=== PATIENT | female | born 1985 | race Caucasian/White ===

== ENCOUNTER 2017-11-27 14:09 | Inpatient (IN) | payer OTHER ==
[2017-11-27] MEDS ORDERED: Nalbuphine 10 MG/1 ML Vial IVPUSH PRN (14:15)
[2017-11-27] MEDS ORDERED: Tranexamic Acid 1,000 MG in Sodium Chloride 0.9% 100 ML IV PRN (14:15)
[2017-11-27] MEDS ORDERED: Carboprost Tromethamine 250 MCG/1 ML Amp IM PRN (14:15)
[2017-11-27] MEDS ORDERED: Terbutaline 1 MG/ML SDV SUBCUT PRN (14:15)
[2017-11-27] MEDS ORDERED: Methylergonovine 0.2 MG/1 ML Amp IM PRN (14:15)
[2017-11-27] MEDS ORDERED: Sodium Chloride 0.9% 10 ML Syringe FLUSH PRN (14:15)
[2017-11-27] MEDS ORDERED: Butorphanol 1 MG/ML SDV IVPUSH PRN (14:15)
[2017-11-27] MEDS ORDERED: Misoprostol 200 MCG Tab PO PRN (14:15)
[2017-11-27] MEDS ORDERED: Sodium Chloride 0.9% 2.5 ML Syringe FLUSH PRN (14:15)
[2017-11-27] MEDS ORDERED: Lidocaine 1% 50 ML MDV INJECT PRN (14:15)
[2017-11-27] MEDS ORDERED: Water For Irrigation,Sterile 1,000 ML Container IRR PRN (14:15)
[2017-11-27] MEDS ORDERED: Oxytocin/0.9 % Sodium Chloride 30 UNIT/500 ML BAG IV SCH ×2 (14:15)
[2017-11-27] MEDS: Lactated Ringers 1,000 ML IV SCH ×2 (15:26→23:06)
--- NOTE | 2017-11-27 22:28 | PCM.PREANE ---
Preanesthetic Assessment - Anesthesia/Transfusion/Family Hx Anesthesia History: Prior Anesthesia Without Reaction Family History of Anesthesia Reaction: No Transfusion History: No Prior Transfusion(s) - Review of Systems General: No Symptoms Pulmonary: No Symptoms Cardiovascular: No Symptoms Gastrointestinal: No Symptoms Neurological: No Symptoms Other: Reports: None - Physical Assessment Height: 5 ft 1 in Weight: 81.193 kg ASA Class: 2 Mental Status: Alert & Oriented x3 Airway Class: Mallampati = 2 Dentition: Reports: Normal Dentition Thyro-Mental Finger Breadths: 3 Mouth Opening Finger Breadths: 3 ROM/Head Extension: Full Lungs: Clear to Auscultation, Normal Respiratory Effort Cardiovascular: Regular Rate, Regular Rhythm - Lab Values: Laboratory Last Values WBC 8.11 K/uL (4.0-11.0) 11/27/17 14:52 RBC 3.87 M/uL (4.30-5.90) L 11/27/17 14:52 Hgb 12.3 g/dL (12.0-16.0) 11/27/17 14:52 Hct 36.6 % (36.0-46.0) 11/27/17 14:52 MCV 94.6 fL (80.0-98.0) 11/27/17 14:52 MCH 31.8 pg (27.0-32.0) 11/27/17 14:52 MCHC 33.6 g/dL (31.0-37.0) 11/27/17 14:52 RDW Std Deviation 50.9 fl (28.0-62.0) 11/27/17 14:52 RDW Coeff of Kyara 15 % (11.0-15.0) 11/27/17 14:52 Plt Count 248 K/uL (150-400) 11/27/17 14:52 MPV 9.50 fL (7.40-12.00) 11/27/17 14:52 Nucleated RBC % 0.0 /100WBC 11/27/17 14:52 Nucleated RBCs # 0 K/uL 11/27/17 14:52 POC Glucose 101 mg/dL (60-110) 11/27/17 19:18 Blood Type O POSITIVE 11/27/17 14:52 Antibody Screen NEGATIVE 11/27/17 14:52 - Allergies Allergies/Adverse Reactions: Allergies Allergy/AdvReac Type Severity Reaction Status Date / Time No Known Allergies Allergy Verified 10/12/17 21:24 - Acknowledgements Anesthesia Type Planned: Epidural Pt an Appropriate Candidate for the Planned Anesthesia: Yes Alternatives and Risks of Anesthesia Discussed w Pt/Guardian: Yes Pt/Guardian Understands and Agrees with Anesthesia Plan: Yes PreAnesthesia Questionnaire HEENT History: Reports: Impaired Vision Cardiovascular History: Reports: None Respiratory History: Reports: None Gastrointestinal History: Reports: GERD Genitourinary History: Reports: None 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: , Spontaneous : 4 Para: 3 LMP (Approximate): Musculoskeletal History: Reports: None Neurological History: Reports: None Psychiatric History: Reports: None Endocrine/Metabolic History: Reports: Diabetes, Gestational Hematologic History: Reports: None Immunologic History: Reports: None Oncologic (Cancer) History: Reports: None Dermatologic History: Reports: None - Infectious Disease History Infectious Disease History: Reports: Chicken Pox - Past Surgical History HEENT Surgical History: Reports: None Female Surgical History: Reports: None - SUBSTANCE USE Smoking Status *Q: Never Smoker Second Hand Smoke Exposure: Yes Recreational Drug Use History: No - HOME MEDS Home Medications: Home Meds Vit #76/Iron,Carb/Fa [Pnv 29-1 Tablet] 1 caplet DAILY 10/12/17 [History ] - CURRENT (IN HOUSE) MEDS Current Meds: Current Medications Butorphanol Tartrate (Stadol) 1 mg IVPUSH Q1H PRN PRN Reason: Pain Carboprost Tromethamine (Hemabate Ds) 250 mcg IM ASDIRECTED PRN PRN Reason: Post Hemorrhage Lactated Ringer's (Ringers, Lactated) 1,000 mls @ 150 mls/hr IV ASDIRECTED HELEN Last Admin: 11/27/17 15:26 Dose: 150 mls/hr Oxytocin/Sodium Chloride (Oxytocin 30 Unit/500 Ml-Ns) 30 unit in 500 mls @ 999 mls/hr IV TITRATE HELEN Oxytocin/Sodium Chloride (Oxytocin 30 Unit/500 Ml-Ns) 30 unit in 500 mls @ 2 mls/hr IV TITRATE HELEN; Protocol Last Titration: 11/27/17 18:20 Dose: 10 munits/min, 10 mls/hr Tranexamic Acid 1,000 mg/ (Sodium Chloride) 110 mls @ 660 mls/hr IV ONETIME PRN PRN Reason: Bleeding Insulin Human Regular 100 unit (/ Sodium Chloride) 100 mls @ 0.5 mls/hr IV TITRATE HELEN; Protocol Lidocaine HCl (Xylocaine 1%) 50 ml INJECT .ONCE PRN PRN Reason: Laceration repair Methylergonovine Maleate (Methergine) 0.2 mg IM ASDIRECTED PRN PRN Reason: Post Hemorrhage Misoprostol (Cytotec) 200 mcg PO .ONCE PRN PRN Reason: Post Hemorrhage Nalbuphine HCl (Nubain) 10 mg IVPUSH Q1H PRN PRN Reason: Pain (severe 7-10) Sodium Chloride (Saline Flush) 10 ml FLUSH ASDIRECTED PRN PRN Reason: Keep Vein Open Sodium Chloride (Saline Flush) 2.5 ml FLUSH ASDIRECTED PRN PRN Reason: Keep Vein Open Sterile Water (Sterile Water For Irrigation) 1,000 ml IRR ASDIRECTED PRN PRN Reason: delivery Terbutaline Sulfate (Brethine) 0.25 mg SUBCUT ASDIRECTED PRN PRN Reason: Tacysystole
[2017-11-28] MEDS ORDERED: oxyCODONE 5 MG Tab PO PRN (05:28)
[2017-11-28] MEDS ORDERED: Ibuprofen 800 MG Tab PO PRN (05:28)
[2017-11-28] MEDS ORDERED: Witch Hazel Medicated Pads 40/Jar TOP PRN (05:28)
[2017-11-28] MEDS ORDERED: Bisacodyl 10 MG Supp RECTAL PRN (05:28)
[2017-11-28] MEDS ORDERED: Acetaminophen 500 MG Tab PO PRN ×2 (05:28)
[2017-11-28] MEDS ORDERED: Ibuprofen 400 MG Tab PO PRN (05:28)
[2017-11-28] MEDS ORDERED: Docusate Sodium 100 MG Cap PO PRN (05:28)
[2017-11-28] MEDS ORDERED: Benzocaine/Menthol 20%-0.5% Spray 78 GM Cannister TOP PRN (05:28)
[2017-11-28] MEDS ORDERED: Lanolin 100% Cream 7 GM Tube TOP PRN (05:28)
--- NOTE | 2017-11-28 05:38 | PCM.DEL ---
L & D Note - General Info Date of Service: 11/28/17 - Delivery Note Labor: Augmented by Oxytocin Cervical Ripening Method: Misoprostil Delivery Outcome: Livebirth Infant Delivery Method: Spontaneous Vaginal Delivery-Single Presentation: Left Occiput Anterior (DILSHAD) Nuchal Cord: None Prep: Other Anesthesia Type: Epidural Amniotic Fluid Description: Clear Episiotomy Type: None Laceration: None Placenta: Intact, Spontaneous Cord: 3 Vessels Estimated Blood Loss: 150 Resuscitation Needed: No Score 1 min: 8 Score 5 min: 9 Second Stage Interventions: Reports: Encouragement Given, Pushing, Stirrups/Leg Supports Induction Criteria - Avendaño Score Avendaño Score Dilation: 1-2 cm Avendaño Score Effacement: 40-50% Avendaño Score 's Station: -3 Avendaño Score Consistency: Medium Avendaño Score Cervix Position: Posterior Avendaño Score Total: 3 Avendaño Score Presenting Part: Reports: Cephalic - Induction Gestational Age >/= 39 wks: No Medical Indication: Gestational diabetes, insulin controlled Estimated Pelvis: Reports: Adequate Reassuring Monitoring Strip: Yes Absence of Tachy Systole: Yes - General Info Date of Service: 11/28/17 - Patient Data Weight - Most Recent: 179 lb Lab Results Last 24 Hours: Laboratory Results - last 24 hr 11/27/17 11/27/17 11/27/17 Range/Units 14:52 14:52 15:29 WBC 8.11 (4.0-11.0) K/uL RBC 3.87 L (4.30-5.90) M/uL Hgb 12.3 (12.0-16.0) g/dL Hct 36.6 (36.0-46.0) % MCV 94.6 (80.0-98.0) fL MCH 31.8 (27.0-32.0) pg MCHC 33.6 (31.0-37.0) g/dL RDW Std Deviation 50.9 (28.0-62.0) fl RDW Coeff of Kyara 15 (11.0-15.0) % Plt Count 248 (150-400) K/uL MPV 9.50 (7.40-12.00) fL Nucleated RBC % 0.0 /100WBC Nucleated RBCs # 0 K/uL POC Glucose 133 H (60-110) mg/dL Blood Type O POSITIVE Antibody Screen NEGATIVE 11/27/17 11/27/17 11/27/17 Range/Units 17:24 19:18 21:51 WBC (4.0-11.0) K/uL RBC (4.30-5.90) M/uL Hgb (12.0-16.0) g/dL Hct (36.0-46.0) % MCV (80.0-98.0) fL MCH (27.0-32.0) pg MCHC (31.0-37.0) g/dL RDW Std Deviation (28.0-62.0) fl RDW Coeff of Kyara (11.0-15.0) % Plt Count (150-400) K/uL MPV (7.40-12.00) fL Nucleated RBC % /100WBC Nucleated RBCs # K/uL POC Glucose 121 H 101 89 (60-110) mg/dL Blood Type Antibody Screen 11/27/17 11/28/17 11/28/17 Range/Units 23:19 01:41 03:47 WBC (4.0-11.0) K/uL RBC (4.30-5.90) M/uL Hgb (12.0-16.0) g/dL Hct (36.0-46.0) % MCV (80.0-98.0) fL MCH (27.0-32.0) pg MCHC (31.0-37.0) g/dL RDW Std Deviation (28.0-62.0) fl RDW Coeff of Kyara (11.0-15.0) % Plt Count (150-400) K/uL MPV (7.40-12.00) fL Nucleated RBC % /100WBC Nucleated RBCs # K/uL POC Glucose 119 H 100 95 (60-110) mg/dL Blood Type Antibody Screen Med Orders - Current: Current Medications Acetaminophen (Tylenol Extra Strength) 500 mg PO Q4H PRN PRN Reason: Pain Acetaminophen (Tylenol Extra Strength) 1,000 mg PO Q4H PRN PRN Reason: Pain Benzocaine/Menthol (Dermoplast Pain Relief 20%-0.5% [place]) 78 gm TOP ASDIRECTED PRN PRN Reason: Perineal Comfort Measure Bisacodyl (Dulcolax) 10 mg RECTAL .ONCE PRN PRN Reason: Constipation Docusate Sodium (Colace) 100 mg PO BID PRN PRN Reason: Constipation Emollient Ointment (Lansinoh Hpa) 0 gm TOP ASDIRECTED PRN PRN Reason: Sore Nipples Ibuprofen (Motrin) 400 mg PO Q4H PRN PRN Reason: Pain Ibuprofen (Motrin) 800 mg PO Q6H PRN PRN Reason: Pain Oxycodone HCl (Oxycodone) 5 mg PO Q2H PRN PRN Reason: Pain Witch Andra (Tucks) 1 pad TOP ASDIRECTED PRN PRN Reason: comfort care Discontinued Medications Butorphanol Tartrate (Stadol) 1 mg IVPUSH Q1H PRN PRN Reason: Pain Carboprost Tromethamine (Hemabate Ds) 250 mcg IM ASDIRECTED PRN PRN Reason: Post Hemorrhage Lactated Ringer's (Ringers, Lactated) 1,000 mls @ 150 mls/hr IV ASDIRECTED HELEN Last Admin: 11/27/17 23:06 Dose: 999 mls/hr Oxytocin/Sodium Chloride (Oxytocin 30 Unit/500 Ml-Ns) 30 unit in 500 mls @ 999 mls/hr IV TITRATE HELEN Oxytocin/Sodium Chloride (Oxytocin 30 Unit/500 Ml-Ns) 30 unit in 500 mls @ 2 mls/hr IV TITRATE HELEN; Protocol Last Titration: 11/27/17 18:20 Dose: 10 munits/min, 10 mls/hr Tranexamic Acid 1,000 mg/ (Sodium Chloride) 110 mls @ 660 mls/hr IV ONETIME PRN PRN Reason: Bleeding Insulin Human Regular 100 unit (/ Sodium Chloride) 100 mls @ 0.5 mls/hr IV TITRATE HELEN; Protocol Fentanyl/Bupivacaine HCl (Hjvsujew-Jloto-Oh 2 Mcg/Ml-0.125%) Confirm Administered Dose 100 mls @ as directed EP .[facility] ONE Stop: 11/27/17 22:58 Lidocaine HCl (Xylocaine 1%) 50 ml INJECT .ONCE PRN PRN Reason: Laceration repair Methylergonovine Maleate (Methergine) 0.2 mg IM ASDIRECTED PRN PRN Reason: Post Hemorrhage Misoprostol (Cytotec) 200 mcg PO .ONCE PRN PRN Reason: Post Hemorrhage Nalbuphine HCl (Nubain) 10 mg IVPUSH Q1H PRN PRN Reason: Pain (severe 7-10) Sodium Chloride (Saline Flush) 10 ml FLUSH ASDIRECTED PRN PRN Reason: Keep Vein Open Sodium Chloride (Saline Flush) 2.5 ml FLUSH ASDIRECTED PRN PRN Reason: Keep Vein Open Sterile Water (Sterile Water For Irrigation) 1,000 ml IRR ASDIRECTED PRN PRN Reason: delivery Terbutaline Sulfate (Brethine) 0.25 mg SUBCUT ASDIRECTED PRN PRN Reason: Tacysystole - Problem List & Annotations (1) Vaginal delivery SNOMED Code(s): 776209093 Code(s): O80 - ENCOUNTER FOR FULL-TERM UNCOMPLICATED DELIVERY Status: Acute Current Visit: Yes (2) Gestational diabetes mellitus (GDM) requiring insulin SNOMED Code(s): 43787362, 895805059 Code(s): O24.414 - GESTATIONAL DIABETES IN , INSULIN CONTROLLED Status: Acute Current Visit: Yes - Problem List Review Problem List Initiated/Reviewed/Updated: Yes - My Orders Last 24 Hours: My Active Orders 11/28/17 05:14 BLOOD GAS ARTERIAL UMBILICAL [BG] Routine BLOOD GAS VENOUS UMBILICAL [BG] Routine 11/28/17 05:28 Patient Status [ADT] Routine May Shower [RC] ASDIRECTED Up ad Violeta [RC] ASDIRECTED Vital Signs [RC] PER UNIT ROUTINE Acetaminophen [Tylenol Extra Strength] 1,000 mg PO Q4H PRN Acetaminophen [Tylenol Extra Strength] 500 mg PO Q4H PRN Benzocaine/Menthol [Dermoplast Pain Relief 20%-0.5% [place]] 78 gm TOP ASDIRECTED PRN Bisacodyl [Dulcolax] 10 mg RECTAL .ONCE PRN Docusate Sodium [Colace] 100 mg PO BID PRN Ibuprofen [Motrin] 400 mg PO Q4H PRN Ibuprofen [Motrin] 800 mg PO Q6H PRN Lanolin [Lansinoh HPA] See Dose Instructions TOP ASDIRECTED PRN Witch Andra [Tucks] 1 pad TOP ASDIRECTED PRN oxyCODONE 5 mg PO Q2H PRN Assess Lochia [WOMSER] Per Unit Routine Assess Uterine Involution [WOMSER] Per Unit Routine Peripheral IV Discontinue [OM.PC] Routine Resuscitation Status Routine 11/28/17 05:29 Perineal Care [OM.PC] Per Unit Routine 11/28/17 Breakfast Regular Diet [DIET] 11/29/17 05:11 HEMOGLOBIN/HEMATOCRIT,HH [HEME] Timed
--- NOTE | 2017-11-28 07:18 | PCM48HPAN ---
Post Anesthesia Note - EVALUATION WITHIN 48HRS OF ANESTHETIC Vital Signs in Normal Range: Yes Patient Participated in Evaluation: Yes Respiratory Function Stable: Yes Airway Patent: Yes Cardiovascular Function Stable: Yes Hydration Status Stable: Yes Pain Control Satisfactory: Yes Nausea and Vomiting Control Satisfactory: Yes Mental Status Recovered: Yes
--- NOTE | 2017-11-28 08:18 | PCM.PNPP ---
- General Info Date of Service: 11/28/17 Functional Status: Reports: Pain Controlled, Tolerating Diet, Ambulating, Urinating - Review of Systems General: Reports: No Symptoms HEENT: Reports: No Symptoms Pulmonary: Reports: No Symptoms Cardiovascular: Reports: No Symptoms Gastrointestinal: Reports: No Symptoms Genitourinary: Reports: No Symptoms Musculoskeletal: Reports: No Symptoms Skin: Reports: No Symptoms Neurological: Reports: No Symptoms Psychiatric: Reports: No Symptoms - General Info Date of Service: 11/28/17 - Patient Data Weight - Most Recent: 81.193 kg Lab Results - Last 24 Hours: Laboratory Results - last 24 hr 11/27/17 11/27/17 11/27/17 Range/Units 14:52 14:52 15:29 WBC 8.11 (4.0-11.0) K/uL RBC 3.87 L (4.30-5.90) M/uL Hgb 12.3 (12.0-16.0) g/dL Hct 36.6 (36.0-46.0) % MCV 94.6 (80.0-98.0) fL MCH 31.8 (27.0-32.0) pg MCHC 33.6 (31.0-37.0) g/dL RDW Std Deviation 50.9 (28.0-62.0) fl RDW Coeff of Kyara 15 (11.0-15.0) % Plt Count 248 (150-400) K/uL MPV 9.50 (7.40-12.00) fL Nucleated RBC % 0.0 /100WBC Nucleated RBCs # 0 K/uL Cord ABG pH (7.18-7.38) Cord ABG Base Excess (-10--2) Cord VBG pH (7.25-7.45) Cord VBG Base Excess (-10--2) POC Glucose 133 H (60-110) mg/dL Blood Type O POSITIVE Antibody Screen NEGATIVE 11/27/17 11/27/17 11/27/17 Range/Units 17:24 19:18 21:51 WBC (4.0-11.0) K/uL RBC (4.30-5.90) M/uL Hgb (12.0-16.0) g/dL Hct (36.0-46.0) % MCV (80.0-98.0) fL MCH (27.0-32.0) pg MCHC (31.0-37.0) g/dL RDW Std Deviation (28.0-62.0) fl RDW Coeff of Kyara (11.0-15.0) % Plt Count (150-400) K/uL MPV (7.40-12.00) fL Nucleated RBC % /100WBC Nucleated RBCs # K/uL Cord ABG pH (7.18-7.38) Cord ABG Base Excess (-10--2) Cord VBG pH (7.25-7.45) Cord VBG Base Excess (-10--2) POC Glucose 121 H 101 89 (60-110) mg/dL Blood Type Antibody Screen 11/27/17 11/28/17 11/28/17 Range/Units 23:19 01:41 03:47 WBC (4.0-11.0) K/uL RBC (4.30-5.90) M/uL Hgb (12.0-16.0) g/dL Hct (36.0-46.0) % MCV (80.0-98.0) fL MCH (27.0-32.0) pg MCHC (31.0-37.0) g/dL RDW Std Deviation (28.0-62.0) fl RDW Coeff of Kyara (11.0-15.0) % Plt Count (150-400) K/uL MPV (7.40-12.00) fL Nucleated RBC % /100WBC Nucleated RBCs # K/uL Cord ABG pH (7.18-7.38) Cord ABG Base Excess (-10--2) Cord VBG pH (7.25-7.45) Cord VBG Base Excess (-10--2) POC Glucose 119 H 100 95 (60-110) mg/dL Blood Type Antibody Screen 11/28/17 Range/Units 05:13 WBC (4.0-11.0) K/uL RBC (4.30-5.90) M/uL Hgb (12.0-16.0) g/dL Hct (36.0-46.0) % MCV (80.0-98.0) fL MCH (27.0-32.0) pg MCHC (31.0-37.0) g/dL RDW Std Deviation (28.0-62.0) fl RDW Coeff of Kyara (11.0-15.0) % Plt Count (150-400) K/uL MPV (7.40-12.00) fL Nucleated RBC % /100WBC Nucleated RBCs # K/uL Cord ABG pH 7.261 (7.18-7.38) Cord ABG Base Excess -9 (-10--2) Cord VBG pH 7.238 L (7.25-7.45) Cord VBG Base Excess -9 (-10--2) POC Glucose (60-110) mg/dL Blood Type Antibody Screen Med Orders - Current: Current Medications Acetaminophen (Tylenol Extra Strength) 500 mg PO Q4H PRN PRN Reason: Pain Acetaminophen (Tylenol Extra Strength) 1,000 mg PO Q4H PRN PRN Reason: Pain Benzocaine/Menthol (Dermoplast Pain Relief 20%-0.5% [place]) 78 gm TOP ASDIRECTED PRN PRN Reason: Perineal Comfort Measure Last Admin: 11/28/17 07:38 Dose: 1 spray Bisacodyl (Dulcolax) 10 mg RECTAL .ONCE PRN PRN Reason: Constipation Docusate Sodium (Colace) 100 mg PO BID PRN PRN Reason: Constipation Last Admin: 11/28/17 07:36 Dose: 100 mg Emollient Ointment (Lansinoh Hpa) 0 gm TOP ASDIRECTED PRN PRN Reason: Sore Nipples Last Admin: 11/28/17 07:37 Dose: 1 gm Ibuprofen (Motrin) 400 mg PO Q4H PRN PRN Reason: Pain Ibuprofen (Motrin) 800 mg PO Q6H PRN PRN Reason: Pain Oxycodone HCl (Oxycodone) 5 mg PO Q2H PRN PRN Reason: Pain Witch Andra (Tucks) 1 pad TOP ASDIRECTED PRN PRN Reason: comfort care Last Admin: 11/28/17 07:36 Dose: 1 gm Discontinued Medications Butorphanol Tartrate (Stadol) 1 mg IVPUSH Q1H PRN PRN Reason: Pain Carboprost Tromethamine (Hemabate Ds) 250 mcg IM ASDIRECTED PRN PRN Reason: Post Hemorrhage Lactated Ringer's (Ringers, Lactated) 1,000 mls @ 150 mls/hr IV ASDIRECTED HELEN Last Admin: 11/27/17 23:06 Dose: 999 mls/hr Oxytocin/Sodium Chloride (Oxytocin 30 Unit/500 Ml-Ns) 30 unit in 500 mls @ 999 mls/hr IV TITRATE HELEN Oxytocin/Sodium Chloride (Oxytocin 30 Unit/500 Ml-Ns) 30 unit in 500 mls @ 2 mls/hr IV TITRATE HELEN; Protocol Last Titration: 11/27/17 18:20 Dose: 10 munits/min, 10 mls/hr Tranexamic Acid 1,000 mg/ (Sodium Chloride) 110 mls @ 660 mls/hr IV ONETIME PRN PRN Reason: Bleeding Insulin Human Regular 100 unit (/ Sodium Chloride) 100 mls @ 0.5 mls/hr IV TITRATE HELEN; Protocol Fentanyl/Bupivacaine HCl (Fwcoidcq-Irtfr-Qk 2 Mcg/Ml-0.125%) Confirm Administered Dose 100 mls @ as directed EP .[facility] ONE Stop: 11/27/17 22:58 Lidocaine HCl (Xylocaine 1%) 50 ml INJECT .ONCE PRN PRN Reason: Laceration repair Methylergonovine Maleate (Methergine) 0.2 mg IM ASDIRECTED PRN PRN Reason: Post Hemorrhage Misoprostol (Cytotec) 200 mcg PO .ONCE PRN PRN Reason: Post Hemorrhage Nalbuphine HCl (Nubain) 10 mg IVPUSH Q1H PRN PRN Reason: Pain (severe 7-10) Sodium Chloride (Saline Flush) 10 ml FLUSH ASDIRECTED PRN PRN Reason: Keep Vein Open Sodium Chloride (Saline Flush) 2.5 ml FLUSH ASDIRECTED PRN PRN Reason: Keep Vein Open Sterile Water (Sterile Water For Irrigation) 1,000 ml IRR ASDIRECTED PRN PRN Reason: delivery Terbutaline Sulfate (Brethine) 0.25 mg SUBCUT ASDIRECTED PRN PRN Reason: Tacysystole - Infant Interaction Disposition, : [place] in Room with Family Infant Interaction: Holding Feeding: Breastfed Infant; Nursed Well Support Person: - Recovery Exam Fundal Placement: Midline Lochia Amount: Small Lochia Color: Rubra/Red Episiotomy/Laceration: Approximated - Exam General: Alert, Oriented HEENT: Pupils Equal Neck: Supple Lungs: Clear to Auscultation Cardiovascular: Regular Rate, Regular Rhythm GI/Abdominal Exam: Normal Bowel Sounds, Soft, Non-Tender, No Distention, No Mass Extremities: No: No Pedal Edema (1+ bilateral edema) Psy/Mental Status: Alert, Normal Affect, Normal Mood - Problem List & Annotations (1) Gestational diabetes mellitus (GDM) requiring insulin SNOMED Code(s): 34700965, 956188477 Code(s): O24.414 - GESTATIONAL DIABETES IN , INSULIN CONTROLLED Status: Acute Current Visit: Yes (2) Vaginal delivery SNOMED Code(s): 639084413 Code(s): O80 - ENCOUNTER FOR FULL-TERM UNCOMPLICATED DELIVERY Status: Acute Current Visit: Yes - Problem List Review Problem List Initiated/Reviewed/Updated: Yes - My Orders Last 24 Hours: My Active Orders 11/27/17 14:15 Blood Glucose Check, Bedside [RC] Q2HR Heart Tones [RC] CONTINUOUS Non Stress Test [RC] PER UNIT ROUTINE Oxygen Therapy [RC] ASDIRECTED Vaginal Exam [RC] PRN Vital Signs [RC] PER UNIT ROUTINE Vital Signs [RC] PER UNIT ROUTINE - Assessment Assessment:: PPD#0 after gestational diabetes, minimal lochia, recently delivered. - Plan Plan:: Continue care, check fasting glucose in am, anticipate discharge tomorrow.
[2017-11-28] MEDS ORDERED: Hydrocortisone 2.5% Crm 30 GM Tube TOP PRN (18:46)
--- NOTE | 2017-11-29 07:05 | PCM.PNPP ---
- General Info Date of Service: 11/29/17 Functional Status: Reports: Pain Controlled, Tolerating Diet, Ambulating, Urinating - Review of Systems General: Denies: Fever, Weakness, Fatigue Cardiovascular: Denies: Chest Pain, Palpitations, Lightheadedness Gastrointestinal: Denies: Abdominal Pain, Nausea, Vomiting Genitourinary: Denies: Flank Pain Neurological: Reports: No Symptoms - General Info Date of Service: 11/29/17 - Patient Data Vital Signs - Most Recent: Last Vital Signs Temp 36.6 C 11/29/17 05:00 Pulse 79 11/29/17 05:00 Resp 15 11/29/17 05:00 BP 104/57 L 11/29/17 05:00 Pulse Ox 95 11/29/17 05:00 Weight - Most Recent: 81.193 kg Lab Results - Last 24 Hours: Laboratory Results - last 24 hr 11/29/17 Range/Units 05:33 Hgb 10.4 L (12.0-16.0) g/dL Hct 31.5 L (36.0-46.0) % Med Orders - Current: Current Medications Acetaminophen (Tylenol Extra Strength) 500 mg PO Q4H PRN PRN Reason: Pain Acetaminophen (Tylenol Extra Strength) 1,000 mg PO Q4H PRN PRN Reason: Pain Benzocaine/Menthol (Dermoplast Pain Relief 20%-0.5% [place]) 78 gm TOP ASDIRECTED PRN PRN Reason: Perineal Comfort Measure Last Admin: 11/28/17 07:38 Dose: 1 spray Bisacodyl (Dulcolax) 10 mg RECTAL .ONCE PRN PRN Reason: Constipation Docusate Sodium (Colace) 100 mg PO BID PRN PRN Reason: Constipation Last Admin: 11/28/17 07:36 Dose: 100 mg Emollient Ointment (Lansinoh Hpa) 0 gm TOP ASDIRECTED PRN PRN Reason: Sore Nipples Last Admin: 11/28/17 07:37 Dose: 1 gm Hydrocortisone (Proctozone-Hc 2.5% [place]) 0 gm TOP ASDIRECTED PRN PRN Reason: Itching Last Admin: 11/28/17 19:21 Dose: 1 tube Ibuprofen (Motrin) 400 mg PO Q4H PRN PRN Reason: Pain Ibuprofen (Motrin) 800 mg PO Q6H PRN PRN Reason: Pain Last Admin: 11/28/17 19:20 Dose: 800 mg Oxycodone HCl (Oxycodone) 5 mg PO Q2H PRN PRN Reason: Pain Witch Andra (Tucks) 1 pad TOP ASDIRECTED PRN PRN Reason: comfort care Last Admin: 11/28/17 07:36 Dose: 1 gm Discontinued Medications Butorphanol Tartrate (Stadol) 1 mg IVPUSH Q1H PRN PRN Reason: Pain Carboprost Tromethamine (Hemabate Ds) 250 mcg IM ASDIRECTED PRN PRN Reason: Post Hemorrhage Lactated Ringer's (Ringers, Lactated) 1,000 mls @ 150 mls/hr IV ASDIRECTED HELEN Last Admin: 11/27/17 23:06 Dose: 999 mls/hr Oxytocin/Sodium Chloride (Oxytocin 30 Unit/500 Ml-Ns) 30 unit in 500 mls @ 999 mls/hr IV TITRATE HELEN Oxytocin/Sodium Chloride (Oxytocin 30 Unit/500 Ml-Ns) 30 unit in 500 mls @ 2 mls/hr IV TITRATE HELEN; Protocol Last Titration: 11/27/17 18:20 Dose: 10 munits/min, 10 mls/hr Tranexamic Acid 1,000 mg/ (Sodium Chloride) 110 mls @ 660 mls/hr IV ONETIME PRN PRN Reason: Bleeding Insulin Human Regular 100 unit (/ Sodium Chloride) 100 mls @ 0.5 mls/hr IV TITRATE HELEN; Protocol Fentanyl/Bupivacaine HCl (Oshibpfy-Hupae-Ds 2 Mcg/Ml-0.125%) Confirm Administered Dose 100 mls @ as directed EP .[facility] ONE Stop: 11/27/17 22:58 Last Admin: 11/28/17 20:41 Dose: Not Given Lidocaine HCl (Xylocaine 1%) 50 ml INJECT .ONCE PRN PRN Reason: Laceration repair Methylergonovine Maleate (Methergine) 0.2 mg IM ASDIRECTED PRN PRN Reason: Post Hemorrhage Misoprostol (Cytotec) 200 mcg PO .ONCE PRN PRN Reason: Post Hemorrhage Nalbuphine HCl (Nubain) 10 mg IVPUSH Q1H PRN PRN Reason: Pain (severe 7-10) Sodium Chloride (Saline Flush) 10 ml FLUSH ASDIRECTED PRN PRN Reason: Keep Vein Open Sodium Chloride (Saline Flush) 2.5 ml FLUSH ASDIRECTED PRN PRN Reason: Keep Vein Open Sterile Water (Sterile Water For Irrigation) 1,000 ml IRR ASDIRECTED PRN PRN Reason: delivery Terbutaline Sulfate (Brethine) 0.25 mg SUBCUT ASDIRECTED PRN PRN Reason: Tacysystole - Interaction Infant Disposition, : in Room with Family Infant Interaction: Holding Infant Feeding: Breastfed Infant; Nursed Well Support Person: - Recovery Exam Fundal Tone: Firm Fundal Level: At Umbilicus Fundal Placement: Midline Lochia Amount: Scant Lochia Color: Rubra/Red Perineum Description: Intact, Minimal Bruising/Swelling Episiotomy/Laceration: None Bladder Status: Voiding Urinary Elimination: Voided - Exam General: Alert, Oriented Lungs: Normal Respiratory Effort Cardiovascular: Regular Rate, Regular Rhythm GI/Abdominal Exam: Normal Bowel Sounds, Soft, Non-Tender Extremities: Pedal Edema (trace). No: Jose Angel's Sign Skin: Warm, Dry, Intact Psy/Mental Status: Alert, Normal Affect - Problem List & Annotations (1) Gestational diabetes mellitus (GDM) requiring insulin SNOMED Code(s): 10391532, 231583474 Code(s): O24.414 - GESTATIONAL DIABETES IN , INSULIN CONTROLLED Status: Acute Current Visit: Yes (2) Vaginal delivery SNOMED Code(s): 635950040 Code(s): O80 - ENCOUNTER FOR FULL-TERM UNCOMPLICATED DELIVERY Status: Acute Current Visit: Yes - Problem List Review Problem List Initiated/Reviewed/Updated: Yes - My Orders Last 24 Hours: My Active Orders 11/28/17 18:46 Hydrocortisone [Proctozone-HC 2.5% Crm] 0 gm TOP ASDIRECTED PRN 11/29/17 07:02 Ready for Discharge [RC] PER UNIT ROUTINE - Assessment Assessment:: PPD#1 after gestational diabetes, - Plan Plan:: Glucose is 93 this morning. Discharge to home today. Follow up at [facility] 6 weeks. Infection and bleeding warnings. Discharge instructions reviewed. Plan 75 gm GTT at PP visit
--- NOTE | 2017-12-01 09:17 | OR ---
SURGEON: Norma Drake MD DATE OF PROCEDURE: 11/28/2017 PREOPERATIVE DIAGNOSES: 1. Term intrauterine at 39 weeks' gestation. 2. Gestational diabetes, type A2, insulin controlled. POSTOPERATIVE DIAGNOSES: 1. Term intrauterine at 39 weeks gestation. 2. Gestational diabetes, type A2, insulin controlled. 3. Delivered. PROCEDURE: Induction of labor with spontaneous vaginal delivery. ANESTHESIA: Epidural. ESTIMATED BLOOD LOSS: 150 mL. COMPLICATIONS: None. DISPOSITION: Mother and baby are [facility] FINDINGS: Male , weight 3740 g, scores 8 and 9 at 1 and 5 minutes respectively. Grossly normal placenta with three-vessel cord. Intact perineum. BRIEF HISTORY: Eli is a 31-year-old G4, P1-1-2, who presented at 38 weeks and 6 days gestation for induction of labor secondary to gestational diabetes type A2, controlled with insulin. surveillance remained reassuring during the period. GBS negative. On admission, she was 1 cm dilated, 50% effaced, station -3, and oxytocin was commenced for induction of labor and titrated up as per protocol. She received epidural for pain management. Artificial rupture of membranes was performed, at 1:45am when she was 5 cm dilated with copious amount of clear amniotic fluid noted. She made good progress became fully dilated within the next 3 hours. Maximum dose of Pitocin was 14 milliunits per minute. heart tracing remained category 1. Intrapartum blood sugars were within normal ranges. She commenced active pushing but although she was pushing effectively, there was minimal descent of the head. VE reveal direct occipital posterior position at + 1 station. Successful manual rotation of the head was performed with verbal consent Once the manual rotation was performed, she was able to push the baby's head down to +4 station with the next three contractions, and was set up for delivery in modified dorsal lithotomy position. DESCRIPTION OF PROCEDURE: She had a spontaneous vaginal delivery of a live male infant in the left occipital anterior position, no nuchal cord, clear amniotic fluid at delivery. Anterior and posterior shoulders and the rest of the baby were delivered without difficulty. Baby was vigorous and cried spontaneously at . Baby was delivered onto the maternal abdomen with the nursery nurse in attendance, stimulating and drying him. Delayed cord clamping was performed and the cord was cut. Cord blood and gas samples were obtained. With delivery of the , oxytocin infusion was converted to titration for active management of third stage of labor. The placenta was delivered by controlled cord traction, appeared to be complete and intact. Examination of the perineum reveals no lacerations. Uterine massage was performed and the uterus was found to be well contracted at the umbilicus. The patient tolerated the procedure well. Sponge, instrument, and needle counts were correct at the end of the delivery. ADUMVIV / MODL /[id number] MTDD
== END 2017-11-29 11:50 | disposition home or self-care (01) | DRG 775 ==
LOC: MW.OBCHECK 14:09 → MW.OB 14:15 → OBSVTOIN 11-28 05:13 → MW.OB 11-28 19:29
PROVIDERS: ADMIT Obstetrics & Gynecology; ATTEND Obstetrics & Gynecology
PROC: 10E0XZZ Delivery of Products of Conception, External Approach (ICD-10-PCS; principal; 2017-11-28)
PROC: 6A550ZT Pheresis of Cord Blood Stem Cells, Single (ICD-10-PCS; principal; 2017-11-28)
PROC: 10907ZC Drainage of Amniotic Fluid, Therapeutic from Products of Conception, Via Natural or Artificial Opening (ICD-10-PCS; principal; 2017-11-28)
PROC: 3E033VJ Introduction of Other Hormone into Peripheral Vein, Percutaneous Approach (ICD-10-PCS; principal; 2017-11-28)
PROC: 10S0XZZ Reposition Products of Conception, External Approach (ICD-10-PCS; principal; 2017-11-28)
PROC: 3E0R3BZ Introduction of Anesthetic Agent into Spinal Canal, Percutaneous Approach (ICD-10-PCS; 2017-11-28)
PROC: 00HU33Z Insertion of Infusion Device into Spinal Canal, Percutaneous Approach (ICD-10-PCS; 2017-11-28)
DX: O24.424 Gestational diabetes mellitus in childbirth, insulin controlled (principal); Z37.0 Single live birth; Z3A.39 39 weeks gestation of pregnancy; O64.0XX0 Obstructed labor due to incomplete rotation of fetal head, not applicable or unspecified
CPT/HCPCS: 36415; 59025; 59409; 82803; 82962; 85014; 85018; 85027; 86850; 86900; 86901; A9270-GY; J2590; J7120

== ENCOUNTER 2019-09-03 18:23 | Emergency (ER) | payer BC, OTHER ==
--- NOTE | 2019-09-03 18:54 | EDM.PDOC ---
ED HPI GENERAL MEDICAL PROBLEM - General Chief Complaint: RECORD CHANGER Problem Stated Complaint: VAGINAL BUMP Time Seen by Provider: 09/03/19 18:35 Source of Information: Reports: Patient History Limitations: Reports: No Limitations - History of Present Illness INITIAL COMMENTS - FREE TEXT/NARRATIVE: HISTORY AND PHYSICAL: History of present illness: Patient is a 33-year-old female who presents to the emergency room with complaints of irritation to the right inner labia. She states last evening she was using the bathroom and noticed irritation while wiping. She thought she could feel a "bump" to the inner labia going into the vagina. States the irritation has mostly resolved but does have irritation with in the vagina with minimal discharge. She did have a positive home test on. She does plan on establishing care with an RECORD CHANGER at [facility]. She is 4, para 3 -no previous complications. Denies any concerns of STDs. Patient denies any fever, chills, headache, change in vision, syncope or near syncope. Denies any chest pain, back pain, shortness of breath or cough. Denies any abdominal pain, nausea, vomiting, diarrhea, constipation or dysuria. Has not noted any blood in urine or stool. Patient has been eating and drinking appropriately. Review of systems: As per history of present illness and below otherwise all systems reviewed and negative. Past medical history: As per history of present illness and as reviewed below otherwise noncontributory. Surgical history: As per history of present illness and as reviewed below otherwise noncontributory. Social history: See social history for further information Family history: As per history of present illness and as reviewed below otherwise noncontributory. Physical exam: General: Well developed and well nourished 33-year-old female. Alert and oriented. Nontoxic-appearing and in no acute distress. HEENT: Atraumatic, normocephalic, pupils equal and reactive bilaterally, negative for conjunctival pallor or scleral icterus, mucous membranes moist, TMs normal bilaterally, throat clear, neck supple, nontender, trachea midline. No drooling or trismus noted. No meningeal signs. No hot potato voice noted. Lungs: Clear to auscultation, breath sounds equal bilaterally, chest nontender. Heart: S1S2, regular rate and rhythm without overt murmur Abdomen: Soft, nondistended, nontender. Negative for masses or hepatosplenomegaly. Negative for costovertebral tenderness. Pelvis: Stable nontender. Genitourinary: Done with consent and a jazz musician at the bedside. Normal- appearing external genitalia. She does have some minimal redness without fluctuance or concern of an abscess to the patient's right inner labia. Small amount of discharge noted, sample sent to lab. No pain with physical exam. Skin: SEE exam, otherwise skin is intact, warm, dry. No lesions or rashes noted. Extremities: Atraumatic, moves all extremities per self without difficulty or deficits, negative for cords or calf pain. Neurovascular unremarkable. Neuro: Awake, alert, oriented. Cranial nerves II through XII unremarkable. Cerebellum unremarkable. Motor and sensory unremarkable throughout. Exam nonfocal. Notes: There are no lesions noted on my exam for testing. Currently no evidence of an abscess, will do TUNDE and urine to sent to lab. We discussed signs and symptoms that would prompt her to return to the emergency room, I do want her to follow with her RECORD CHANGER for further evaluation if the irritation continues. Supportive care measures were reviewed and discussed. Voices understanding and is agreeable to plan of care. Denies any further questions or concerns at this time. Diagnostics: UA, HCUG, Tric/Cand/BV Therapeutics: None Prescription: Augmentin Impression: Candidiasis UTI in Plan: 1. Please start and/or continue to take your vitamin with folic acid once daily. 2. Take the antibiotic as directed for the UTI. I would take the MONISTAT as directed over the next 5-7 days. 3. Tylenol as needed for pain management. 4. Follow up with her RECORD CHANGER in the next week. Return to the ED as needed and as discussed. Definitive disposition and diagnosis as appropriate pending reevaluation and review of above. Vaginal Pain Score (Numeric/FACES): 4 - Related Data Allergies Allergy/AdvReac Type Severity Reaction Status Date / Time No Known Allergies Allergy Verified 09/03/19 18:34 Home Meds: Home Meds Vit #76/Iron,Carb/Fa [Pnv 29-1 Tablet] 1 caplet PO DAILY 10/12/17 [ History] Past Medical History HEENT History: Reports: Impaired Vision Cardiovascular History: Reports: None Respiratory History: Reports: None Gastrointestinal History: Reports: GERD Genitourinary History: Reports: None RECORD CHANGER History: Reports: , Spontaneous Musculoskeletal History: Reports: None Neurological History: Reports: None Psychiatric History: Reports: None Endocrine/Metabolic History: Reports: Diabetes, Gestational Hematologic History: Reports: None Immunologic History: Reports: None Oncologic (Cancer) History: Reports: None Dermatologic History: Reports: None - Infectious Disease History Infectious Disease History: Reports: Chicken Pox - Past Surgical History HEENT Surgical History: Reports: None Female Surgical History: Reports: None Social & Family History - Family History HEENT: Reports: None Cardiac: Reports: None Respiratory: Reports: None GI: Reports: None : Reports: None OBGYN: Reports: Musculoskeletal: Reports: None Neurological: Reports: None Psychiatric: Reports: None Endocrine/Metabolic: Reports: Diabetes, Type I Hematologic: Reports: None Immunologic: Reports: None Dermatologic: Reports: None Oncologic: Reports: None - Tobacco Use Smoking Status *Q: Never Smoker - Caffeine Use Caffeine Use: Reports: Coffee - Recreational Drug Use Recreational Drug Use: No ED ROS GENERAL - Review of Systems Review Of Systems: Comprehensive ROS is negative, except as noted in HPI. ED EXAM, SKIN/RASH Exam: See Below (See dictation) Course - Vital Signs Last Recorded V/S: Last Vital Signs Temp 98.5 F 09/03/19 18:31 Pulse 95 09/03/19 18:31 Resp 16 09/03/19 18:31 BP 120/75 09/03/19 18:31 Pulse Ox 97 09/03/19 18:31 - Orders/Labs/Meds Orders: Active Orders 24 hr Category Date Time Status CULTURE URINE [RM] Stat Lab 09/03/19 18:40 Received Labs: Laboratory Tests 09/03/19 09/03/19 09/03/19 Range/Units 18:40 18:40 18:40 Urine Color YELLOW Urine Appearance SLT CLOUDY Urine pH 6.5 (5.0-8.0) Ur Specific Hawthorne 1.025 (1.001-1.035) Urine Protein NEGATIVE (NEGATIVE) mg/dL Urine Glucose (UA) NEGATIVE (NEGATIVE) mg/dL Urine Ketones TRACE H (NEGATIVE) mg/dL Urine Occult Blood TRACE-INTACT H (NEGATIVE) Urine Nitrite NEGATIVE (NEGATIVE) Urine Bilirubin NEGATIVE (NEGATIVE) Urine Urobilinogen 1.0 (<2.0) EU/dL Ur Leukocyte Esterase TRACE H (NEGATIVE) Urine RBC 0-2 (0-2/HPF) Urine WBC 1-3 (0-5/HPF) Ur Epithelial Cells FEW (NONE-FEW) Urine Bacteria 1+ H (NEGATIVE) Urine Yeast FEW Urine HCG, Qual POSITIVE (NEGATIVE) Eleonora species DNA POSITIVE H (NEGATIVE) Gardnerella DNA Probe NEGATIVE (NEGATIVE) Trichomonas DNA Probe NEGATIVE (NEGATIVE) Departure - Departure Time of Disposition: 19:34 Disposition: Home, Self-Care 01 Clinical Impression: Candidiasis UTI in Qualifiers: Trimester: first trimester Qualified Code(s): O23.41 - Unspecified infection of urinary tract in , first trimester - Discharge Information Instructions: Urinary Tract Infection, Adult, [id number], Vaginal Yeast Infection, Adult Referrals: PCP,None [Primary Care Provider] - Forms: ED Department Discharge Additional Instructions: The following information is given to patients seen in the emergency department who are being discharged to home. This information is to outline your options for follow-up care. We provide all patients seen in our emergency department with a follow-up referral. The need for follow-up, as well as the timing and circumstances, are variable depending upon the specifics of your emergency department visit. If you don't have a primary care physician on staff, we will provide you with a referral. We always advise you to contact your personal physician following an emergency department visit to inform them of the circumstance of the visit and for follow-up with them and/or the need for any referrals to a consulting specialist. The emergency department will also refer you to a specialist when appropriate. This referral assures that you have the opportunity for follow-up care with a specialist. All of these measure are taken in an effort to provide you with optimal care, which includes your follow-up. Under all circumstances we always encourage you to contact your private physician who remains a resource for coordinating your care. When calling for follow-up care, please make the office aware that this follow-up is from your recent emergency room visit. If for any reason you are refused follow-up, please contact the [facility] Emergency Department at and asked to speak to the emergency department charge nurse. [facility] [address] [place] [id number] [facility] [address] [place] [id number] 1. Please start and/or continue to take your vitamin with folic acid once daily. 2. Take the antibiotic as directed for the UTI. I would take the MONISTAT as directed over the next 5-7 days. 3. Tylenol as needed for pain management. 4. Follow up with your RECORD CHANGER in the next week. Return to the ED as needed and as discussed. Sepsis Event Note - Evaluation Sepsis Screening Result: No Definite Risk - Focused Exam Vital Signs: Vital Signs Temp Pulse Resp BP Pulse Ox 09/03/19 18:31 98.5 F 95 16 120/75 97 Date Exam was Performed: 09/03/19 Time Exam was Performed: 19:31 - My Orders Last 24 Hours: My Active Orders 09/03/19 18:40 CULTURE URINE [RM] Stat - Assessment/Plan Last 24 Hours: My Active Orders 09/03/19 18:40 CULTURE URINE [RM] Stat
[2019-09-03] MEDS ORDERED: Amoxicillin/Clavulanate K 500-125 MG Tab PO ONE (19:39)
[2019-09-03] MEDS ORDERED: Amoxicillin/Clavulanate K 875-125 MG Tab PO ONE (19:53)
== END 2019-09-03 20:02 | disposition home or self-care (01) ==
LOC: MW.ED 18:23
DX: O98.811 Other maternal infectious and parasitic diseases complicating pregnancy, first trimester (principal); B37.3 Candidiasis of vulva and vagina
CPT/HCPCS: 81001; 81025; 87086; 87480; 87510; 87660; 99283; A9270

== ENCOUNTER 2019-09-04 07:35 | Emergency (ER) | payer BC ==
--- NOTE | 2019-09-04 08:10 | EDM.PDOC ---
ED HPI GENERAL MEDICAL PROBLEM - General Chief Complaint: Genitourinary Problem Stated Complaint: UTI/CRAMPING Time Seen by Provider: 09/04/19 07:59 Source of Information: Reports: Patient History Limitations: Reports: No Limitations - History of Present Illness INITIAL COMMENTS - FREE TEXT/NARRATIVE: This 33 year old female is admitted to the ED this morning with a chief complaint of a urinary tract infection. She was in the ED yesterday and was told that she had a urinary tract infection and was placed on Augmentin. She was also told that she was . She complains of vaginal bleeding noted on her toilet paper this morning with associated cramps in her right pelvic area. She is a G4,P3 and A0. She denies any other complaints at this time. Onset: Today Location: Reports: Pelvis (right pelvic cramping) Severity: Mild Right Abdominal \ Pain Score (Numeric/FACES): 4 - Related Data Allergies Allergy/AdvReac Type Severity Reaction Status Date / Time No Known Allergies Allergy Verified 09/04/19 07:47 Home Meds: Home Meds Vit #76/Iron,Carb/Fa [Pnv 29-1 Tablet] 1 caplet PO DAILY 10/12/17 [ History] Amoxicillin/Potassium Clav [Amox-Clav 500-125 mg Tablet] 1 each PO BID 7 Days # 14 tablet 09/03/19 [Rx] Past Medical History HEENT History: Reports: Impaired Vision Cardiovascular History: Reports: None Respiratory History: Reports: None Gastrointestinal History: Reports: GERD Genitourinary History: Reports: None 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: , Spontaneous Musculoskeletal History: Reports: None Neurological History: Reports: None Psychiatric History: Reports: None Endocrine/Metabolic History: Reports: Diabetes, Gestational Hematologic History: Reports: None Immunologic History: Reports: None Oncologic (Cancer) History: Reports: None Dermatologic History: Reports: None - Infectious Disease History Infectious Disease History: Reports: None - Past Surgical History HEENT Surgical History: Reports: None Female Surgical History: Reports: None Social & Family History - Family History HEENT: Reports: None Cardiac: Reports: None Respiratory: Reports: None GI: Reports: None : Reports: None OBGYN: Reports: Musculoskeletal: Reports: None Neurological: Reports: None Psychiatric: Reports: None Endocrine/Metabolic: Reports: Diabetes, Type I Hematologic: Reports: None Immunologic: Reports: None Dermatologic: Reports: None Oncologic: Reports: None - Tobacco Use Smoking Status *Q: Never Smoker - Caffeine Use Caffeine Use: Reports: Coffee - Recreational Drug Use Recreational Drug Use: No ED ROS GENERAL - Review of Systems Review Of Systems: Comprehensive ROS is negative, except as noted in HPI. ED EXAM, GI/ABD - Physical Exam Exam: See Below Exam Limited By: No Limitations General Appearance: Alert, WD/WN, No Apparent Distress Eyes: Bilateral: Normal Appearance, EOMI Ears: Normal External Exam, Normal Canal Nose: Normal Inspection Throat/Mouth: Normal Inspection, Normal Oropharynx Head: Atraumatic, Normocephalic Neck: Normal Inspection, Full Range of Motion Respiratory/Chest: No Respiratory Distress, Lungs Clear, Normal Breath Sounds, Chest Non-Tender Cardiovascular: Normal Peripheral Pulses, Regular Rate, Rhythm, No Edema, No Gallop, No Murmur GI/Abdominal Exam: Normal Bowel Sounds, Soft, Non-Tender, No Organomegaly (Female) Exam: Deferred Rectal (Female) Exam: Deferred Back Exam: Normal Inspection Extremities: Normal Inspection, Normal Range of Motion, Normal Capillary Refill Neurological: Alert, Oriented (times 4), CN II-XII Intact, Normal Cognition, Normal Gait, Normal Reflexes Psychiatric: Normal Affect, Normal Mood Skin Exam: Warm, Dry, Intact, Normal Color, No Rash Lymphatic: No Adenopathy Course - Vital Signs Text/Narrative:: The patient was advised that she may have an ectopic in the right F. Tube. I told her that she will be seen by OB shortly. I talked with Dr. Mooney at 9:55AM. He will come in an evaluate the patient. The patient was seen by Dr. Mooney at 10:48AM. He reviewed her ultrasound. He states that she can be discharged with a follow up with him on Friday or Friday and to have another [facility] on Friday. She will be discharged. The patient agrees with the discharge plan. Last Recorded V/S: Last Vital Signs Temp 96.3 F L 09/04/19 07:47 Pulse 71 09/04/19 09:33 Resp 16 09/04/19 09:33 BP 115/73 09/04/19 09:33 Pulse Ox 99 09/04/19 09:33 - Orders/Labs/Meds Labs: Laboratory Tests 09/04/19 09/04/19 09/04/19 Range/Units 08:24 08:24 08:24 WBC 6.50 (4.0-11.0) K/uL RBC 3.97 L (4.30-5.90) M/uL Hgb 12.4 (12.0-16.0) g/dL Hct 37.4 (36.0-46.0) % MCV 94.2 (80.0-98.0) fL MCH 31.2 (27.0-32.0) pg MCHC 33.2 (31.0-37.0) g/dL RDW Std Deviation 44.5 (28.0-62.0) fl RDW Coeff of Kyara 13 (11.0-15.0) % Plt Count 283 (150-400) K/uL MPV 9.60 (7.40-12.00) fL Neut % (Auto) 64.1 (48.0-80.0) % Lymph % (Auto) 29.2 (16.0-40.0) % Wharton % (Auto) 5.7 (0.0-15.0) % Eos % (Auto) 0.8 (0.0-7.0) % Baso % (Auto) 0.2 (0.0-1.5) % Neut # (Auto) 4.2 (1.4-5.7) K/uL Lymph # (Auto) 1.9 (0.6-2.4) K/uL Wharton # (Auto) 0.4 (0.0-0.8) K/uL Eos # (Auto) 0.1 (0.0-0.7) K/uL Baso # (Auto) 0.0 (0.0-0.1) K/uL Nucleated RBC % 0.0 /100WBC Nucleated RBCs # 0 K/uL INR Sodium 134 L (136-145) mmol/L Potassium 3.9 (3.5-5.1) mmol/L Chloride 101 (98-107) mmol/L Carbon Dioxide 23.3 (21.0-32.0) mmol/L BUN 9 (7.0-18.0) mg/dL Creatinine 0.7 (0.6-1.0) mg/dL Est Cr Clr Drug Dosing 87.87 mL/min Estimated GFR (MDRD) > 60.0 ml/min Glucose 114 H (74-106) mg/dL Calcium 8.1 L (8.5-10.1) mg/dL Total Bilirubin 0.7 (0.2-1.0) mg/dL AST 15 (15-37) IU/L ALT 24 (14-63) IU/L Alkaline Phosphatase 84 (46-116) U/L Total Protein 7.2 (6.4-8.2) g/dL Albumin 3.8 (3.4-5.0) g/dL Globulin 3.4 (2.6-4.0) g/dL Albumin/Globulin Ratio 1.1 (0.9-1.6) HCG, Quant 65.0 mIU/mL 09/04/19 Range/Units 09:48 WBC (4.0-11.0) K/uL RBC (4.30-5.90) M/uL Hgb (12.0-16.0) g/dL Hct (36.0-46.0) % MCV (80.0-98.0) fL MCH (27.0-32.0) pg MCHC (31.0-37.0) g/dL RDW Std Deviation (28.0-62.0) fl RDW Coeff of Kyara (11.0-15.0) % Plt Count (150-400) K/uL MPV (7.40-12.00) fL Neut % (Auto) (48.0-80.0) % Lymph % (Auto) (16.0-40.0) % Wharton % (Auto) (0.0-15.0) % Eos % (Auto) (0.0-7.0) % Baso % (Auto) (0.0-1.5) % Neut # (Auto) (1.4-5.7) K/uL Lymph # (Auto) (0.6-2.4) K/uL Wharton # (Auto) (0.0-0.8) K/uL Eos # (Auto) (0.0-0.7) K/uL Baso # (Auto) (0.0-0.1) K/uL Nucleated RBC % /100WBC Nucleated RBCs # K/uL INR 0.94 Sodium (136-145) mmol/L Potassium (3.5-5.1) mmol/L Chloride (98-107) mmol/L Carbon Dioxide (21.0-32.0) mmol/L BUN (7.0-18.0) mg/dL Creatinine (0.6-1.0) mg/dL Est Cr Clr Drug Dosing mL/min Estimated GFR (MDRD) ml/min Glucose (74-106) mg/dL Calcium (8.5-10.1) mg/dL Total Bilirubin (0.2-1.0) mg/dL AST (15-37) IU/L ALT (14-63) IU/L Alkaline Phosphatase (46-116) U/L Total Protein (6.4-8.2) g/dL Albumin (3.4-5.0) g/dL Globulin (2.6-4.0) g/dL Albumin/Globulin Ratio (0.9-1.6) HCG, Quant mIU/mL Departure - Departure Time of Disposition: 10:58 Disposition: Home, Self-Care 01 Condition: Good Clinical Impression: Vaginal bleeding, UTI, Urinary tract infectious disease complication Qualifiers: Trimester: first trimester Qualified Code(s): O26.91 - related conditions, unspecified, first trimester - Discharge Information *PRESCRIPTION DRUG MONITORING PROGRAM REVIEWED*: Yes *COPY OF PRESCRIPTION DRUG MONITORING REPORT IN PATIENT DILCIA: Yes Instructions: Vaginal Bleeding During , Third Trimester, [id number] , Urinary Tract Infection, Adult Referrals: PCP,None [Primary Care Provider] - Forms: ED Department Discharge Additional Instructions: Follow up with your PCP Dr. Mooney on Friday or Friday. You have a Rx for repeat BHCG Quant test for Friday. Rest for the next 24 hours. Return to the ED if your condition gets worse or should you have any questions or concerns. The following information is given to patients seen in the emergency department who are being discharged to home. This information is to outline your options for follow-up care. We provide all patients seen in our emergency department with a follow-up referral. The need for follow-up, as well as the timing and circumstances, are variable depending upon the specifics of your emergency department visit. If you don't have a primary care physician on staff, we will provide you with a referral. We always advise you to contact your personal physician following an emergency department visit to inform them of the circumstance of the visit and for follow-up with them and/or the need for any referrals to a consulting specialist. The emergency department will also refer you to a specialist when appropriate. This referral assures that you have the opportunity for follow-up care with a specialist. All of these measure are taken in an effort to provide you with optimal care, which includes your follow-up. Under all circumstances we always encourage you to contact your private physician who remains a resource for coordinating your care. When calling for follow-up care, please make the office aware that this follow-up is from your recent emergency room visit. If for any reason you are refused follow-up, please contact the [facility] Emergency Department at and asked to speak to the emergency department charge nurse. Sepsis Event Note - Evaluation Sepsis Screening Result: No Definite Risk - Focused Exam Vital Signs: Vital Signs Temp Pulse Resp BP Pulse Ox 09/04/19 09:33 71 16 115/73 99 09/04/19 07:47 96.3 F L 84 15 110/65 98 Date Exam was Performed: 09/04/19 Time Exam was Performed: 10:56
--- NOTE | 2019-09-04 09:19 | US ---
1st trimester obstetrical ultrasound: Multiple real-time images were obtained transvaginally. Comparison: No previous study is available. Single intrauterine gestational sac is noted. No pole or yolk sac is seen. Shape of the gestational sac is somewhat irregular and contains diffuse debris. Sac size has a mean diameter 2.3 cm. Hypoechoic area is seen within or next to the right ovary measuring approximately 2.3 cm. Uncertain if this represents an ectopic next to the ovary or represents hemorrhagic cyst within the ovarian periphery. Left ovary difficult to visualize but is felt to be within normal limits. No free fluid is seen. Impression: 1. Complicated gestational sac with no yolk sac or pole. Findings most likely represent blighted ovum with nonviable . 2. Finding within or next to the right ovary as noted above. Differential includes ectopic versus peripheral hemorrhagic right ovarian cyst. Latter is felt more likely given the uterine findings. Correlation with serial beta hCGs could be obtained and if any further clinical questions remain, follow-up ultrasound study could then be considered. Diagnostic code #5 This report was dictated in MDT
[2019-09-04 09:56] LABS: BLOOD UREA NITROGEN,BUN 9 mg/dL (7.0-18.0); CARBON DIOXIDE,CO2 23.3 mmol/L (21.0-32.0); CHLORIDE,CL 101 mmol/L (98-107); GLUCOSE RANDOM 114 mg/dL (74-106); POTASSIUM,K 3.9 mmol/L (3.5-5.1); SODIUM,NA 134 mmol/L (136-145)
== END 2019-09-04 11:15 | disposition home or self-care (01) ==
LOC: MW.ED 07:35
DX: O20.9 Hemorrhage in early pregnancy, unspecified (principal); O23.41 Unspecified infection of urinary tract in pregnancy, first trimester
CPT/HCPCS: 36415; 76817; 76817-26; 80053; 84702; 85025; 85610; 99283; 99284-25